=== PATIENT | male | born 1965 | race Caucasian/White ===

== ENCOUNTER 2017-05-13 16:47 | Emergency (ER) | payer MEDICARE, MEDICAID ==
--- OUTSIDE RECORDS SUMMARY | 2017-05-13 18:11 | XMS REPORT ---
:1965 External Reference #:[id number] Author Organization [facility] Address [address] [place] [address] Phone [phone] Care Team Providers Name Role Phone Jose Haile M.D. Care Team Information Rubber Compounder Unavailable Jose Haile M.D. Primary Care Physician Unavailable Payers Type Date Identification Numbers Payment Provider Subscriber Medicare Primary Policy Number: [id number] Medicare Dmitriy Hutson PayID: [id number] [address] [place] [address] Medicaid Policy Number: [id number] Medicaid Dmitriy Hutson PayID: [id number] [address] [place] [address] Problems Description No Information Family History Date Family Member(s) Problem(s) Comments Father due to Congestive Heart Failure () Mother due to Heart Attack () Social History Type Date Description Comments Cigarette Use Quit 3 Years Ago ETOH Use Rare Use Of Alcohol Recreational Drug Use Never Used Drugs Allergies, Adverse Reactions, Alerts Date Description Reaction Status Severity Comments 03/01/2017 [place] Urticaria active Moderate Medications Medication Date Status Form Strength Qnty SIG Indications Ordering Provider Meclizine HCL Active Tablets 25mg 1 by Unknown 0 mouth three times a day Vital Signs Date Vital Result Comment 05/03/2017 Weight 185.12 lb Height 69 inches 5'9" BMI (Body Mass Index) 27.3 kg/m2 BP Systolic 136 mmHg BP Diastolic 74 mmHg Heart Rate 75 /min O2 % BldC Oximetry 97 % Body Temperature 97.7 F Pain Level 0 Results Description No Information Procedures Date CPT Code Description Status 03/26/2017 04930 Tympanostomy, Gen. Anesth. Completed 03/26/2017 60186 Anesthesia, Tympanotomy Completed 03/01/2017 48860 Tympanometry Completed 03/01/2017 73084 Audiometry, Comprehensive Completed Encounters Type Date Location Provider CPT E/M Dx Office Visit 03/01/2017 1:15p [place] [facility] Garfield Bill M.D. 99277 H90.6 H69.92 R42 Plan of Care No Information Available
--- NOTE | 2017-05-13 19:01 | RAD ---
INDICATION: Cough COMPARISON: April 25, 2015 TECHNIQUE: PA and lateral dual-energy views were obtained. FINDINGS: Bones/Soft Tissues: There are no acute bony findings. Cardiomediastinal: The cardiomediastinal silhouette is normal. Lungs: There are no infiltrates. Pleura: There are no pleural effusions. Other: None IMPRESSION: NO ACTIVE DISEASE
[2017-05-13 19:29] LABS: Hematocrit 40 % (42-52); Mean Corpuscular HGB Conc 35 g/dl (31-36); Mean Corpuscular Hemoglobin 32 pg (27-31); Mean Corpuscular Volume 92 fL (80-94); Mean Platelet Volume 7 um3 (7.4-10.4); Red Blood Count 4.37 10^6/ul (4.0-5.4); Red Cell Distribution Width 13 % (10.5-15); White Blood Count 8.8 10^3/ul (3.5-10.8)
[2017-05-13 19:44] LABS: Albumin 4.1 g/dL (3.2-5.2); BUN/Creatinine Ratio 14.7 (8-20); Calcium 9.6 mg/dL (8.6-10.3); EGFR African American 91.4 (>60); Globulin 3.1 g/dL (2-4); Potassium 3.8 mmol/L (3.5-5.0); Total Bilirubin 0.5 mg/dL (0.2-1.0); Total Protein 7.2 g/dL (6.4-8.9)
--- NOTE | 2017-05-13 20:43 | ED ---
Respiratory - HPI Summary HPI Summary: 51M presents with cough for 4 days. He states yesterday he had chest pain with inspiration but not today. He admits to SOB. He admits to chills but no fever. He denies any sinus congestions, headache, sore throat, abdominal pain, n/v/ d. He denies any respiratory history. He has history of allergies so has been using allergy medication without relief. He denies any cardiac history. - History of Current Complaint Chief Complaint: EDGeneral Stated Complaint: CHILLS/SOB Time Seen by Provider: 05/13/17 18:23 Pain Intensity: 0 - Allergy/Home Medications Allergies/Adverse Reactions: Allergies Allergy/AdvReac Type Severity Reaction Status Date / Time [place] Allergy Severe Difficulty Uncoded 05/13/17 17:10 Breathing PMH/Surg Hx/FS Hx/Imm Hx Endocrine/Hematology History: Denies: Hx Anticoagulant Therapy, Other Endocrine/Hematological Disorders Cardiovascular History: Denies: Hx Pacemaker/ICD, Other Cardiovascular Problems/Disorders Respiratory History: Denies: Other Respiratory Problems/Disorders GI History: Denies: Other GI Disorders History: Denies: Other Problems/Disorders Musculoskeletal History: Reports: Hx Arthritis - Rheumatoid Arthritis Denies: Other Musculoskeletal History Sensory History: Denies: Other Sensory Impairments Opthamlomology History: Denies: Other Sensory Impairments Neurological History: Denies: Other Neuro Impairments/Disorders Psychiatric History: Denies: Hx Panic Disorder, Other Psychiatric Issues/Disorders - Surgical History Surgery Procedure, Year, and Place: FINGER AMPUTATION,RA,EAR INFECTION. - Immunization History Date of Tetanus Vaccine: unknown Infectious Disease History: No Infectious Disease History: Denies: Traveled Outside the [place] in Last 30 Days - Family History Known Family History: Positive: Respiratory Disease - Social History Alcohol Use: None Substance Use Type: Reports: None Smoking Status (MU): Former Smoker Review of Systems Positive: Chills. Negative: Fever Positive: Chest Pain Positive: Shortness Of Breath, Cough All Other Systems Reviewed And Are Negative: Yes Physical Exam Triage Information Reviewed: Yes Vital Signs On Initial Exam: Initial Vitals Temp Pulse Resp BP Pulse Ox 97.5 F 73 20 145/74 98 05/13/17 17:07 05/13/17 17:07 05/13/17 17:07 05/13/17 17:07 05/13/17 17:07 Vital Signs Reviewed: Yes Appearance: Positive: Well-Appearing Skin: Positive: Warm, Dry Head/Face: Positive: Normal Head/Face Inspection Eyes: Positive: Normal, EOMI, HERNANDO, Conjunctiva Clear ENT: Positive: Normal ENT inspection, Pharynx normal, TMs normal Respiratory/Lung Sounds: Positive: Clear to Auscultation, Breath Sounds Present Cardiovascular: Positive: Normal, RRR Abdomen Description: Positive: Nontender, Soft Bowel Sounds: Positive: Present Musculoskeletal: Positive: Normal Neurological: Positive: Normal Psychiatric: Positive: Normal Diagnostics - Vital Signs Vital Signs Temp Pulse Resp BP Pulse Ox 05/13/17 17:07 97.5 F 73 20 145/74 98 - Laboratory Lab Results: Lab Results 05/13/17 05/13/17 05/13/17 Range/Units 19:10 19:10 19:10 WBC 8.8 (3.5-10.8) 10^3/ul RBC 4.37 (4.0-5.4) 10^6/ul Hgb 14.0 (14.0-18.0) g/dl Hct 40 L (42-52) % MCV 92 (80-94) fL MCH 32 H (27-31) pg MCHC 35 (31-36) g/dl RDW 13 (10.5-15) % Plt Count 294 (150-450) 10^3/ul MPV 7 L (7.4-10.4) um3 Neut % (Auto) 54.5 (38-83) % Lymph % (Auto) 29.3 (25-47) % Gila % (Auto) 11.8 H (1-9) % Eos % (Auto) 3.3 (0-6) % Baso % (Auto) 1.1 (0-2) % Absolute Neuts (auto) 4.8 (1.5-7.7) 10^3/ul Absolute Lymphs (auto) 2.6 (1.0-4.8) 10^3/ul Absolute Monos (auto) 1.0 H (0-0.8) 10^3/ul Absolute Eos (auto) 0.3 (0-0.6) 10^3/ul Absolute Basos (auto) 0.1 (0-0.2) 10^3/ul Absolute Nucleated RBC 0 10^3/ul Nucleated RBC % 0 D-Dimer, Quantitative (Less Than 230) ng/mL Sodium 132 L (133-145) mmol/L Potassium 3.8 (3.5-5.0) mmol/L Chloride 101 (101-111) mmol/L Carbon Dioxide 26 (22-32) mmol/L Anion Gap 5 (2-11) mmol/L BUN 16 (6-24) mg/dL Creatinine 1.09 (0.67-1.17) mg/dL Est GFR ( Amer) 91.4 (>60) Est GFR (Non-Af Amer) 71.0 (>60) BUN/Creatinine Ratio 14.7 (8-20) Glucose 95 (70-100) mg/dL Lactic Acid (0.5-2.0) mmol/L Calcium 9.6 (8.6-10.3) mg/dL Total Bilirubin 0.50 (0.2-1.0) mg/dL AST 18 (13-39) U/L ALT 14 (7-52) U/L Alkaline Phosphatase 100 (34-104) U/L Troponin I 0.00 (<0.04) ng/mL B-Natriuretic Peptide 14 ( - 100) pg/mL Total Protein 7.2 (6.4-8.9) g/dL Albumin 4.1 (3.2-5.2) g/dL Globulin 3.1 (2-4) g/dL Albumin/Globulin Ratio 1.3 (1-3) Influenza A (Rapid) (Negative) Influenza B (Rapid) (Negative) 05/13/17 05/13/17 05/13/17 Range/Units 19:10 19:10 19:48 WBC (3.5-10.8) 10^3/ul RBC (4.0-5.4) 10^6/ul Hgb (14.0-18.0) g/dl Hct (42-52) % MCV (80-94) fL MCH (27-31) pg MCHC (31-36) g/dl RDW (10.5-15) % Plt Count (150-450) 10^3/ul MPV (7.4-10.4) um3 Neut % (Auto) (38-83) % Lymph % (Auto) (25-47) % Gila % (Auto) (1-9) % Eos % (Auto) (0-6) % Baso % (Auto) (0-2) % Absolute Neuts (auto) (1.5-7.7) 10^3/ul Absolute Lymphs (auto) (1.0-4.8) 10^3/ul Absolute Monos (auto) (0-0.8) 10^3/ul Absolute Eos (auto) (0-0.6) 10^3/ul Absolute Basos (auto) (0-0.2) 10^3/ul Absolute Nucleated RBC 10^3/ul Nucleated RBC % D-Dimer, Quantitative 220 (Less Than 230) ng/mL Sodium (133-145) mmol/L Potassium (3.5-5.0) mmol/L Chloride (101-111) mmol/L Carbon Dioxide (22-32) mmol/L Anion Gap (2-11) mmol/L BUN (6-24) mg/dL Creatinine (0.67-1.17) mg/dL Est GFR ( Amer) (>60) Est GFR (Non-Af Amer) (>60) BUN/Creatinine Ratio (8-20) Glucose (70-100) mg/dL Lactic Acid 0.7 (0.5-2.0) mmol/L Calcium (8.6-10.3) mg/dL Total Bilirubin (0.2-1.0) mg/dL AST (13-39) U/L ALT (7-52) U/L Alkaline Phosphatase (34-104) U/L Troponin I (<0.04) ng/mL B-Natriuretic Peptide ( - 100) pg/mL Total Protein (6.4-8.9) g/dL Albumin (3.2-5.2) g/dL Globulin (2-4) g/dL Albumin/Globulin Ratio (1-3) Influenza A (Rapid) Negative (Negative) Influenza B (Rapid) Negative (Negative) Result Diagrams: 05/13/17 19:10 05/13/17 19:10 Lab Statement: Any lab studies that have been ordered have been reviewed, and results considered in the medical decision making process. - Radiology chest Xray Interpretation: No Acute Changes Radiology Interpretation Completed By: Radiologist - EKG No standard instances Cardiac Rate: NL EKG Rhythm: Sinus Rhythm EKG Interpretation: normal sinus rthymn, no significant change from previous EKG Comparison: No Significant Change Disposition - Course Course Of Treatment: 51M presents with cough for 4 days. He states yesterday he had chest pain with inspiration but not today. He admits to SOB. He admits to chills but no fever. He denies any sinus congestions, headache, sore throat , abdominal pain, n/v/d. He denies any respiratory history. He has history of allergies so has been using allergy medication without relief. He denies any cardiac history. on exam lungs CTA. chest xray normal. labs normal. ekg normal. will start inhaler and tessalon. patient understand and agrees with plan. - Differential Dx - Cardiopulmonary Differential Diagnoses - Cardiopulmonary: Bronchitis, Lower Resp Infection, Pulmonary Embolism - Diagnoses Provider Diagnoses: Cough Discharge - Discharge Plan Condition: Good Disposition: HOME Prescriptions: Albuterol HFA INHALER* [Ventolin HFA Inhaler*] 1 puff INH Q6H PRN #1 mdi PRN Reason: Cough Benzonatate CAP* [Tessalon 100 MG CAP*] 100 mg PO TID #30 cap Patient Education Materials: Acute Cough (ED) Referrals: Jose Haile MD [Primary Care Provider] - Additional Instructions: Use Tessalon three times a day for cough Use inhaler one puff every 4 hours for cough as needed Take Tylenol and ibuprofen for pain every 6 hours Follow up with primary within 5 days Return to ED if develop any new or worsening symptoms
[2017-05-13] MEDS ORDERED: Albuterol HFA INHALER* 8 gm MDI INH ONE (20:49)
[2017-05-13 20:50] VITALS: BP 115/64
== END 2017-05-13 21:01 | disposition home or self-care (01) ==
LOC: ED 16:47
DX: R05 Cough (principal); R06.02 Shortness of breath; R07.89 Other chest pain; R68.83 Chills (without fever); Z89.029 Acquired absence of unspecified finger(s); Z87.891 Personal history of nicotine dependence
CPT/HCPCS: 36415; 71020; 80053; 83605; 83880; 84484; 85025; 85379; 87502; 93005; 99282; A9270-GY

== ENCOUNTER 2018-05-25 08:00 | Emergency (ER) | payer MEDICARE, MEDICAID ==
--- OUTSIDE RECORDS SUMMARY | 2018-05-25 08:14 | XMS REPORT | Continuity of Care Document ---
:1965 External Reference #:[id number] Author Name Renee Hoff Care Team Providers Name Role Phone Jose Haile M.D. Care Team Information Group Therapy Counselor Unavailable Jose Haile M.D. Primary Care Physician Unavailable Payers Type Date Identification Numbers Payment Provider Subscriber Policy Number: [id number] Medicare Dmitriy Hutson PayID: [id number] [address] [place] [address] Policy Number: [id number] Medicaid Dmitriy Hutson PayID: [id number] [address] [place] [address] Advance Directives Description No Information Available Problems Description No Information Family History Date Family Member(s) Problem(s) Comments Father due to Congestive Heart Failure () Mother due to Heart Attack () Social History Type Date Description Comments Sex Unknown Cigarette Use Quit 3 Years Ago ETOH Use Rare Use Of Alcohol Recreational Drug Use Never Used Drugs Allergies, Adverse Reactions, Alerts Date Description Reaction Status Severity Comments 03/01/2017 [place] Urticaria Active Moderate Medications Medication Date Status Form Strength Qnty SIG Indications Ordering Provider No Active Active Unknown Medications 018 Augmentin Hx Tablets 875-125mg 14tabs twice a Marcin Bill - day 1 week Garfield, M.DDina 018 Ofloxacin Hx Solution 0.3% 5ml 3-4 drops Fly (Ophthalmic) 018 - in Garfield, affected M.D. 018 ear twice a day for 1 weeks - eye drops for ear, thanks Meclizine HCL Hx Tablets 25mg 1 by mouth Unknown 000 - three times a 018 day Medications Administered in Office Medication Date Status Form Strength Qnty SIG Indications Ordering Provider Dexamethasone Administered Injection Marcin Bill M.D. Dexamethasone Administered Injection Marcin Bill M.D. Immunizations Description No Information Available Vital Signs Date Vital Result Comment 05/09/2018 12:24pm Weight 192.00 lb Height 69 inches 5'9" BMI (Body Mass Index) 28.4 kg/m2 BP Systolic 136 mmHg BP Diastolic 85 mmHg Heart Rate 83 /min O2 % BldC Oximetry 96 % Body Temperature 98.9 F Pain Level 3 04/25/2018 12:51pm Weight 188.00 lb Height 69 inches 5'9" BMI (Body Mass Index) 27.8 kg/m2 BP Systolic 149 mmHg BP Diastolic 93 mmHg Heart Rate 74 /min O2 % BldC Oximetry 98 % Body Temperature 98.4 F Pain Level 7 03/21/2018 12:15pm Weight 183.00 lb Height 69 inches 5'9" BMI (Body Mass Index) 27.0 kg/m2 BP Systolic 130 mmHg BP Diastolic 94 mmHg Heart Rate 63 /min O2 % BldC Oximetry 97 % Body Temperature 98.7 F Pain Level 3 02/28/2018 11:38am Weight 182.00 lb Height 69 inches 5'9" BMI (Body Mass Index) 26.9 kg/m2 BP Systolic 138 mmHg BP Diastolic 91 mmHg Heart Rate 62 /min O2 % BldC Oximetry 98 % Body Temperature 98.4 F Pain Level 0 08/30/2017 1:06pm Weight 200.00 lb Height 69 inches 5'9" BMI (Body Mass Index) 29.5 kg/m2 BP Systolic 148 mmHg BP Diastolic 99 mmHg Heart Rate 90 /min O2 % BldC Oximetry 96 % Body Temperature 99.2 F Pain Level 7 05/03/2017 1:00pm Weight 185.12 lb Height 69 inches 5'9" BMI (Body Mass Index) 27.3 kg/m2 BP Systolic 136 mmHg BP Diastolic 74 mmHg Heart Rate 75 /min O2 % BldC Oximetry 97 % Body Temperature 97.7 F Pain Level 0 Results Description No Information Available Procedures Date Code Description Status 04/25/2018 45996 Pure Tone Audiometry, Air Completed 04/25/2018 39701 Labyrinthotomy Completed 04/07/2018 61185 Labyrinthotomy Completed 04/07/2018 97478 Tympanostomy, Gen. Anesth. Completed 04/07/2018 22328 Anesthesia, Ear Surgery Not Otherwise Spec Completed 03/06/2018 06554 Cat Scan Orbit/Ear W/O Contrast,computed tomography Completed 03/06/2018 96205 Cat Scan Orbit/Ear W/O Contrast,computed tomography Completed 03/06/2018 71400 Cat Scan Orbit/Ear W/O Contrast,computed tomography Completed 02/28/2018 56683 Audiometry, Comprehensive Completed 02/28/2018 42315 Tympanometry Completed 08/30/2017 54043 Tympanometry Completed 08/30/2017 17047 Audiometry, Comprehensive Completed 05/03/2017 16543 Tympanometry Completed 05/03/2017 97418 Audiometry, Comprehensive Completed 03/26/2017 36870 Tympanostomy, Gen. Anesth. Completed 03/26/2017 83175 Anesthesia, Tympanotomy Completed 03/01/2017 67783 Tympanometry Completed 03/01/2017 25670 Audiometry, Comprehensive Completed Encounters Type Date Location Provider Dx Diagnosis Office Visit 04/25/2018 [facility] Garfield Bill M.D. H93.12 Tinnitus, left ear 12:45p H91.92 Unspecified hearing loss, left ear Office Visit 03/21/2018 12:00p [facility] Garfield Bill Z96.22 Myringotomy tube(s) M.D. status H93.12 Tinnitus, left ear J32.9 Chronic sinusitis, unspecified Office Visit 03/06/2018 10:00a [facility] Garfield Bill [id number].Debbie Myringotomy tube(s) M.D. status H93.12 Tinnitus, left ear J32.9 Chronic sinusitis, unspecified Office Visit 02/28/2018 1:30p [facility] Garfield Bill Z96.22 Myringotomy tube(s) M.D. status H93.12 Tinnitus, left ear H90.6 Mixed conductive and sensorineural hearing loss, bilateral Office Visit 08/30/2017 1:00p [facility] Garfield Bill Z96.22 Myringotomy tube(s) M.D. status H90.6 Mixed conductive and sensorineural hearing loss, bilateral Office Visit 05/03/2017 1:00p [facility] Garfield Bill Z96.22 Myringotomy tube(s) M.D. status H90.6 Mixed conductive and sensorineural hearing loss, bilateral Office Visit 03/01/2017 1:15p [facility] Garfield Bill, H90.6 Mixed conductive and M.D. sensorineural hearing loss, bilateral H69.92 Unspecified Eustachian tube disorder, left ear R42 Dizziness and giddiness Plan of Treatment No Information Available
--- OUTSIDE RECORDS SUMMARY | 2018-05-25 08:14 | XMS REPORT | Continuity of Care Document ---
:1965 External Reference #:[id number] Author Name Renee Hoff Care Team Providers Name Role Phone Jose Haile M.D. Care Team Information Negative Cutter Unavailable Jose Haile M.D. Primary Care Physician Unavailable Payers Type Date Identification Numbers Payment Provider Subscriber Policy Number: [id number] Medicare Dmitriy Hutson PayID: [id number] [address] [place] [address] Policy Number: [id number] Medicaid Dmitriy Hutson PayID: [id number] [address] [place] [address] Advance Directives Description No Information Available Problems [...] Marcin Bill - day 1 week Garfield, M.D. 018 Ofloxacin Hx Solution 0.3% 5ml 3-4 [...] Provider Dexamethasone Administered Injection Marcin Bill M.D. Immunizations Description No Information Available Vital Signs Date Vital Result Comment 04/25/2018 12:51pm Weight 188.00 lb Height 69 [...] Information Available Procedures Date Code Description Status 04/07/2018 69120 Labyrinthotomy Completed 04/07/2018 91387 Tympanostomy, Gen. Anesth. Completed 04/07/2018 58671 Anesthesia, Ear Surgery Not Otherwise Spec Completed 03/06/2018 38660 Cat Scan Orbit/Ear W/O Contrast,computed tomography Completed 03/06/2018 76487 Cat Scan Orbit/Ear W/O Contrast,computed tomography Completed 03/06/2018 65064 Cat Scan Orbit/Ear W/O Contrast,computed tomography Completed 02/28/2018 37558 Tympanometry Completed 02/28/2018 23550 Audiometry, Comprehensive Completed 08/30/2017 27657 Tympanometry Completed 08/30/2017 40247 Audiometry, Comprehensive Completed 05/03/2017 84871 Tympanometry Completed 05/03/2017 81232 Audiometry, Comprehensive Completed 03/26/2017 73730 Tympanostomy, Gen. Anesth. Completed 03/26/2017 01325 Anesthesia, Tympanotomy Completed 03/01/2017 41218 Tympanometry Completed 03/01/2017 86574 Audiometry, Comprehensive Completed Encounters Type Date Location Provider Dx Diagnosis Office Visit 03/21/2018 [place] [facility] Garfield Bill Z96.22 Myringotomy tube(s) 12:00p M.D. status H93.12 Tinnitus, left ear J32.9 Chronic sinusitis, unspecified Office Visit 03/06/2018 10:00a [facility] Garfield Bill Z96.22 Myringotomy tube(s) M.D. status H93.12 Tinnitus, left ear J32.9 Chronic sinusitis, unspecified Office Visit 02/28/2018 1:30p [place] [facility] Garfield Bill Z96.22 Myringotomy tube(s) M.D. status H93.12 Tinnitus, left ear H90.6 Mixed conductive and sensorineural hearing loss, bilateral Office Visit 08/30/2017 1:00p [place] [facility] Garfield Bill Z96.22 Myringotomy tube(s) M.D. status H90.6 Mixed conductive and sensorineural hearing loss, bilateral Office Visit 05/03/2017 1:00p [facility] [place] [facility] Garfield Bill Z96.22 Myringotomy tube(s) M.D. status H90.6 Mixed conductive and sensorineural hearing loss, bilateral Office Visit 03/01/2017 1:15p [facility] Garfield Bill, H90.6 Mixed conductive and M.D. sensorineural hearing loss, bilateral H69.92 Unspecified Eustachian tube disorder, left ear R42 Dizziness and giddiness Plan of Treatment No Information Available
[2018-05-25] MEDS ORDERED: NS 0.9% 1000 ML* 1,000 ML IV ONE (10:35)
[2018-05-25] MEDS ORDERED: Ketorolac INJ* 30 MG/ML 1 ML VIAL IV PUSH ONE (10:35)
--- NOTE | 2018-05-25 10:40 | ED ---
Back Pain - HPI Summary HPI Summary: A 52 y/o M presents to ED with c/o lower back pain onset approx a week ago. Pt was strained his lower back and now feels a pulling in his R testicle. He also complains of RLE numbness. He states there is a lump on his lower back as well. He denies testicular swelling, incontinence and is able to ambulate. Pt is a former smoker (1ppd), but denies ETOH and recreational drug use. Aggravating factors: movement. He rates the pain as 8 out of 10 at bedside. - History of Current Complaint Chief Complaint: EDBackInjuryPain Stated Complaint: GROIN PAIN, BACK PAIN Hx Obtained From: Patient Onset/Duration: Sudden Onset, Lasting Weeks, Still Present Onset/Duration: Started Weeks Ago, Still Present Timing: Constant Back Pain Location: Is Discrete @ - lower back Severity Initially: Moderate Severity Currently: Severe Pain Intensity: 8 Pain Scale Used: 0-10 Numeric Character: Aching Aggravating Symptom(s): Movement Associated Signs And Symptoms: Positive: Numbness - RLE, Other - pos: R testicular pain; lump on back. Negative: Swelling - testicular swelling, Bladder Incontinence, Bowel Incontinence - Allergies/Home Medications Allergies/Adverse Reactions: Allergies Allergy/AdvReac Type Severity Reaction Status Date / Time [place] Allergy Severe Difficulty Uncoded 05/25/18 08:02 Breathing PMH/Surg Hx/FS Hx/Imm Hx Previously Healthy: No Endocrine/Hematology History: Denies: Hx Anticoagulant Therapy, Other Endocrine/Hematological Disorders Cardiovascular History: Denies: Hx Pacemaker/ICD, Other Cardiovascular Problems/Disorders Respiratory History: Denies: Other Respiratory Problems/Disorders GI History: Denies: Other GI Disorders History: Denies: Other Problems/Disorders Musculoskeletal History: Reports: Hx Arthritis - Rheumatoid Arthritis Denies: Other Musculoskeletal History Sensory History: Denies: Other Sensory Impairments Opthamlomology History: Denies: Other Sensory Impairments Neurological History: Denies: Other Neuro Impairments/Disorders Psychiatric History: Denies: Hx Panic Disorder, Other Psychiatric Issues/Disorders - Surgical History Surgery Procedure, Year, and Place: FINGER AMPUTATION,RA,EAR INFECTION. - Immunization History Date of Tetanus Vaccine: unknown Infectious Disease History: No Infectious Disease History: Denies: Traveled Outside the [place] in Last 30 Days - Family History Known Family History: Positive: Respiratory Disease - Social History Occupation: Disabled Lives: Dormitory/Roommates Alcohol Use: None Hx Substance Use: No Substance Use Type: Reports: None Hx Tobacco Use: Yes Smoking Status (MU): Former Smoker Review of Systems Positive: pain - R testicular pain, other - neg: testicular swelling. Negative : incontinence Musculoskeletal: Other - pos: lower back pain Skin: Other - pos: lump on lower back Positive: Numbness - RLE All Other Systems Reviewed And Are Negative: Yes Physical Exam - Summary Physical Exam Summary: GENERAL: Patient is a well-developed and nourished M who is lying comfortable in the stretcher. Patient is not in any acute respiratory distress. HEAD AND FACE: Normocephalic EYES: PERRLA, EOMI x 2. EARS: Hearing grossly intact. MOUTH: Oropharynx within normal limits. NECK: Supple, trachea is midline, no adenopathy, no JVD, no carotid bruit. CHEST: Symmetric, no tenderness at palpation LUNGS: Clear to auscultation bilaterally. No wheezing or crackles. CVS: Regular rate and rhythm, S1 and S2 present, no murmurs or gallops appreciated. ABDOMEN: Soft, non-tender. Bowel sounds are normal. No abdominal abnormal pulsations. EXTREMITIES: Full ROM in all major joints, no edema, no cyanosis or clubbing. NEURO: Alert and oriented x 3. No acute neurological deficits. Speech is normal and follows commands. SKIN: Dry and warm : No edema, no tenderness to palpation. No hernia visible. Triage Information Reviewed: Yes Vital Signs On Initial Exam: Initial Vitals Temp Pulse Resp BP Pulse Ox 97.2 F 76 14 150/85 98 05/25/18 08:03 05/25/18 08:03 05/25/18 08:03 05/25/18 08:03 05/25/18 08:03 Vital Signs Reviewed: Yes Diagnostics - Vital Signs Vital Signs Temp Pulse Resp BP Pulse Ox 05/25/18 08:03 97.2 F 76 14 150/85 98 - Laboratory Result Diagrams: 05/25/18 10:53 05/25/18 10:53 Lab Statement: Any lab studies that have been ordered have been reviewed, and results considered in the medical decision making process. - CT A/P CT CT Interpretation Completed By: Radiologist Summary of CT Findings: IMPRESSION: 1. CT findings could be compatible with very mild enterocolitis involving the left of midline proximal small bowel and rectosigmoid colon. 2. No CT apparent hernia. 3. Additional chronic and degenerative changes including L5/S1 pars interarticularis defects with subsequent degenerative disc disease and spondylolisthesis. ED provider has reviewed this report. - Ultrasound No standard instances Ultrasound Interpretation Completed By: Radiologist Summary of Ultrasound Findings: TESTICULAR U/S IMPRESSION: 1. Along the right lateral margin of the right testicle is a cystic lesion measuring 3 cm in greatest dimension. Please correlate to physical examination and focality of pain. A diagnostic possibility includes a resolving hematoma if the patient reports a history of trauma to the right testicle. 2. Otherwise normal ultrasound of the scrotum. ED provider has reviewed this report. Re-Evaluation - Re-Evaluation 1 Re-Evaluation Time: 13:25 Change: Improved Comment: Discussing results with pt. Back Pain Course/Dx - Course Course Of Treatment: Pt is a 52 y/o M presenting with lower back pain onset approx one week ago. Associated sx: R testicular pain, RLE numbness. Denies incontinence. Ambulates at baseline. Bloodwork is unremarkable. UA results show 1+ blood, 1+ RBC. Testicular U/S shows "along the right lateral margin of the right testicle is a cystic lesion measuring 3 cm in greatest dimension. Please correlate to physical examination and focality of pain. A diagnostic possibility includes a resolving hematoma if the patient reports a history of trauma to the right testicle.". A/P CT found "1. CT findings could be compatible with very mild enterocolitis involving the left of midline proximal small bowel and rectosigmoid colon. 2. No CT apparent hernia. 3. Additional chronic and degenerative changes including L5/S1 pars interarticularis defects with subsequent degenerative disc disease and spondylolisthesis.". I discussed results with patient and he reports feeling better. He is hemodynamically stable and safe for discharge. Strict return precautions given and he will otherwise follow up with his PCP, urology and GI. - Diagnoses Provider Diagnoses: Testicular cyst, Colitis, DDD (degenerative disc disease) Discharge - Sign-Out/Discharge Documenting (check all that apply): Patient Departure - D/C - Discharge Plan Condition: Stable Disposition: HOME Prescriptions: Ciprofloxacin HCl [Cipro] 500 mg PO Q12HR 7 Days #14 tablet metroNIDAZOLE [Flagyl] 500 mg PO TID 7 Days #21 tablet predniSONE [Prednisone 20 MG TAB] 20 mg PO DAILY #4 tablet Patient Education Materials: Ciprofloxacin (By mouth), Prednisone (By mouth), Metronidazole (By mouth), Testicle Pain (ED), Degenerative Disc Disease (ED), Colitis (ED) Referrals: Jose Haile MD [Primary Care Provider] - 3 Days Radhames Burciaga MD [Medical Doctor] - 3 Days Durga Kirk MD [Medical Doctor] - 3 Days Migue Hubbard MD [Medical Doctor] - Additional Instructions: Follow up with your primary care physician in 1-3 days. RETURN TO THE EMERGENCY DEPARTMENT FOR CHANGING OR WORSENING SYMPTOMS. Follow up with Dr. Kirk, urology, within 2-3 days. Follow up with Dr. Burciaga, building energy consultant, within 2-3 days. Follow up with Dr. Hubbard ortho, within 2-3 days. - Billing Disposition and Condition Condition: STABLE Disposition: Home - Attestation Statements Document Initiated by Scribe: Yes Documenting Scribe: Cassandra Fang Provider For Whom Scribe is Documenting (Include Credential): Dr. Kassidy Hsieh MD Scribe Attestation: I, Cassandra Fang, juanitoibed for Dr. Kassidy Hsieh MD on 05/25/18 at 1358. Scribe Documentation Reviewed: Yes Provider Attestation: The documentation as recorded by the Cassandra long accurately reflects the service I personally performed and the decisions made by me, Dr. Kassidy Hsieh MD Status of Scribe Document: Viewed
[2018-05-25 11:07] LABS: ABS Basophils 0 10^3/ul (0-0.2); ABS Eosinophils 0.2 10^3/ul (0-0.6); ABS Lymphocytes 2.7 10^3/ul (1.0-4.8); ABS Monocytes 0.7 10^3/ul (0-0.8); ABS Neutrophils 6.4 10^3/ul (1.5-7.7); ABS Nucleated RBC 0 10^3/ul; Eosinophil % 2.4 %; Hematocrit 42 % (42-52); Hemoglobin 14.3 g/dl (14.0-18.0); Lymphocyte % 26.8 %; Mean Corpuscular HGB Conc 34 g/dl (31-36); Mean Corpuscular Hemoglobin 31 pg (27-31); Mean Corpuscular Volume 91 fL (80-94); Mean Platelet Volume 6.8 fL (7.4-10.4); Nucleated Red Blood Cells % 0; Platelet Count 301 10^3/ul (150-450); Red Blood Count 4.58 10^6/ul (4.00-5.40); Red Cell Distribution Width 14 % (10.5-15); White Blood Count 10.1 10^3/ul (3.5-10.8)
[2018-05-25 11:12] LABS: Activated Partial Thrombo Time 31.2 seconds (26.0-36.3); INR 0.89 (0.77-1.02)
[2018-05-25 11:22] LABS: Albumin/Globulin Ratio 1.7 (1-3); BUN/Creatinine Ratio 12.4 (8-20); C Reactive Protein 2.09 mg/L (<8.01); Calcium 8.9 mg/dL (8.6-10.3); Globulin 2.4 g/dL (2-4); Magnesium 2.2 mg/dL (1.9-2.7); Potassium 4.3 mmol/L (3.5-5.0); Total Bilirubin 0.6 mg/dL (0.2-1.0); Total Protein 6.4 g/dL (6.4-8.9)
[2018-05-25] MEDS ORDERED: Iohexol 300* (CONTRAST) 10 ML SDV IV ONE (11:57)
[2018-05-25 12:38] LABS: Urine Appearance Clear; Urine Bacteria Absent (Absent); Urine Bilirubin Negative (Negative); Urine Blood 1+ (Negative); Urine Color Straw; Urine Glucose Negative (Negative); Urine Ketones Negative (Negative); Urine Nitrite Negative (Negative); Urine Protein Negative (Negative); Urine Red Blood Cell 1+(3-5/hpf) (Absent); Urine Specific Gravity 1.006 (1.010-1.030); Urine Urobilinogen Negative (Negative); Urine White Blood Cell Absent (Absent)
[2018-05-25] MEDS ORDERED: Dexamethasone IV* 4 MG/ML 5 ML VIAL (20 MG) IVPB ONE (13:29)
[2018-05-25] MEDS ORDERED: Ciprofloxacin TAB* 500 MG PO ONE (13:29)
[2018-05-25] MEDS ORDERED: metroNIDAZOLE TAB* 250 MG PO ONE (13:29)
[2018-05-25 13:47] VITALS: BP 144/87
== END 2018-05-25 13:47 | disposition home or self-care (01) ==
LOC: ED 08:00
DX: N44.2 Benign cyst of testis (principal); K52.9 Noninfective gastroenteritis and colitis, unspecified; M51.36 Other intervertebral disc degeneration, lumbar region; Z87.891 Personal history of nicotine dependence
CPT/HCPCS: 36415; 74177; 76870; 80053; 81003; 81015; 82150; 83605; 83690; 83735; 85025; 85610; 85730; 86140; 96361; 96374; 96375; 99283; A9270-GY; J1100; J1885; Q9967